=== PATIENT | male | born 1985 | race African-American/Black ===

== ENCOUNTER 2020-01-07 15:24 | Emergency (ER) | payer SELFPAY ==
[~2020-01-07] VITALS: Ht 182.9 cm; Wt 67.1 kg
[2020-01-07 15:29] VITALS: BP 126/71
[2020-01-07] MEDS ORDERED: FLUORESCEIN OPTH STRIP 1 MG OP ONE (16:50)
[2020-01-07 17:40] VITALS: BP 133/81
== END 2020-01-07 17:40 | disposition home or self-care (01) ==
LOC: MED 15:24
DX: H10.9 Unspecified conjunctivitis (principal); B96.89 Other specified bacterial agents as the cause of diseases classified elsewhere
CPT/HCPCS: 99283

== ENCOUNTER 2020-05-07 15:00 | Emergency (ER) | payer SELFPAY | END 2020-05-07 15:05 | disposition left against medical advice (07) | LOC: MED 15:00 | DX: Z53.21 Procedure and treatment not carried out due to patient leaving prior to being seen by health care provider (principal) ==